=== PATIENT | male | born 1975 | race Caucasian/White ===

== ENCOUNTER 2019-01-05 14:17 | Emergency (ER) | payer MEDICARE ==
[~2019-01-05] VITALS: Ht 167.6 cm; Wt 105.2 kg
[~2019-01-05 14:17] MED LIST: ACHD5005 PO; DOXY100T2 PO; PRM25T PO; SEVE800T7
[2019-01-05 14:38] LABS: BASOPHILS % (AUTO) 1 % (0-10); EOSINOPHILS # (AUTO) 0.2 10^3/uL (0.0-0.3); EOSINOPHILS % (AUTO) 2 % (0-10); HEMATOCRIT 37 % (40-54); HEMOGLOBIN 11.6 G/DL (13.3-17.7); LYMPHOCYTES # (AUTO) 1.8 X 10^3 (1.0-4.0); LYMPHOCYTES % (AUTO) 25 % (12-44); MEAN CORPUSCULAR HEMOGLOBIN 30 PG (25-34); MEAN CORPUSCULAR HGB CONC 32 G/DL (32-36); MEAN CORPUSCULAR VOLUME 94 FL (80-99); MEAN PLATELET VOLUME 11.3 FL (7.4-10.4); MONOCYTES # (AUTO) 0.8 X 10^3 (0.0-1.0); MONOCYTES % (AUTO) 11 % (0-12); NEUTROPHILS # (AUTO) 4.4 X 10^3 (1.8-7.8); NEUTROPHILS % (AUTO) 62 % (42-75); PLATELET COUNT 178 10^3/uL (130-400); RED CELL DISTRIBUTION WIDTH 18.7 % (10.0-14.5); WHITE BLOOD COUNT 7.1 10^3/uL (4.3-11.0)
[2019-01-05] MEDS ORDERED: LANT10005 (14:43)
[2019-01-05 14:55] LABS: ALBUMIN 4.1 GM/DL (3.2-4.5); BILIRUBIN,TOTAL 0.7 MG/DL (0.1-1.0); CREATININE SERUM 7.25 MG/DL (0.60-1.30); POTASSIUM 3.7 MMOL/L (3.6-5.0); TOTAL PROTEIN 8.4 GM/DL (6.4-8.2)
--- NOTE | 2019-01-05 15:37 | ED Syncope ---
General Chief Complaint: Dizziness/Syncope Stated Complaint: DIZZINESS Nursing Triage Note: pt presents to ed by private auto from [facility] dialysis [facility]. pt states around 1300 durring his treatment he became dizzy. staff reprots pt passed out and came to shortly after. pt recieved a 200 ml bolus of fluids. staff reports pt bp 86/44 at that time and gave pt a second 200 ml bolus of fluids. Staff reprots pt became dizzy and lightheaded again and had loc breifly. Staff then gave pt a 600 ml bolus of fluids. Pt reports he had 3 episodes of vomiting last night but felt ok before dialysis. Source of Information: Patient Exam Limitations: No Limitations History of Present Illness Date Seen by Provider: Jan 05, 2019 Time Seen by Provider: 14:20 Initial Comments 43 year old male who was sent to the emergency room by staff at [facility] for reports of syncope after his treatment. The patient received a total of 1000ml bolus for blood pressure of 86/44. His blood pressure improved and he was sent to the emergency room for further evaluation. The patient arrived POV and is alert, oriented, and no longer dizzy. He is drinking soda and eating chips during exam. Symptoms Prior to Episode: None Loss of Consciousness: Unsure Current Symptoms: Back to Normal Allergies and Home Medications Allergies Coded Allergies: No Known Drug Allergies (Unverified , 07/28/14) Patient Home Medication List Home Medication List Reviewed: Yes Review of Systems Constitutional: no symptoms reported, see HPI Cardiovascular: see HPI, syncope All Other Systems Reviewed Negative Unless Noted: Yes Past Pkasbwv-Naengg-Denjoq Hx Past Med/Social Hx: Reviewed Nursing Past Med/Soc Hx Patient Social History Alcohol Use: Denies Use Recreational Drug Use: No Smoking Status: Never a Smoker Recent Foreign Travel: No Contact w/Someone Who Travel: No Recent Infectious Disease Expo: No Physical Abuse: No Sexual Abuse: No Mistreated: No Fear: No Immunizations Up To Date Tetanus Booster (TDap): Unknown Past Medical History Surgeries: Yes (PLASTIC SURG ON ARMS AND LEG. Fistula left upper extremity) Renal Respiratory: No Cardiac: No Neurological: No Reproductive Disorders: No Kidney Stones, Renal Failure, Dialysis Gastrointestinal: No Musculoskeletal: No Endocrine: No Cancer: No Psychosocial: No Integumentary: Yes (PT STATES OCCASIONAL RASHES, history of MRSA) Blood Disorders: No Family Medical History Reviewed Nursing Family Hx Physical Exam Vital Signs Vital Signs - First Documented 01/05/19 14:33 Temp 98.4 Pulse 114 Resp 20 B/P (MAP) 119/77 (91) Pulse Ox 99 Capillary Refill : Less Than 3 Seconds Height, Weight, BMI Height: 5'6.00" Weight: 232lbs. oz. 105.598763va; BMI Method:Stated General Appearance: No Apparent Distress, WD/WN Cardiovascular: Regular Rate, Rhythm, No Edema, No Gallop, No JVD, No Murmur, Normal Peripheral Pulses Respiratory: Chest Non Tender, Lungs Clear, Normal Breath Sounds, No Accessory Muscle Use, No Respiratory Distress Gastrointestinal: Normal Bowel Sounds, No Organomegaly, No Pulsatile Mass, Non Tender, Soft Extremities: Normal Capillary Refill, Normal Range of Motion, No Pedal Edema Neurologic/Psychiatric: Alert, Oriented x3, Normal Mood/Affect Cranial Nerves: Normal Hearing, Normal Speech, PERRL Coordination/Gait: Normal Finger to Nose, Normal Gait Skin: Normal Color, Warm/Dry, Cool Progress/Results/Core Measures Results/Orders Lab Results Laboratory Tests Test 01/05/19 14:32 Range/Units White Blood Count 7.1 4.3-11.0 10^3/uL Red Blood Count 3.91 L 4.35-5.85 10^6/uL Hemoglobin 11.6 L 13.3-17.7 G/DL Hematocrit 37 L 40-54 % Mean Corpuscular Volume 94 80-99 FL Mean Corpuscular Hemoglobin 30 25-34 PG Mean Corpuscular Hemoglobin Concent 32 32-36 G/DL Red Cell Distribution Width 18.7 H 10.0-14.5 % Platelet Count 178 130-400 10^3/uL Mean Platelet Volume 11.3 H 7.4-10.4 FL Neutrophils (%) (Auto) 62 42-75 % Lymphocytes (%) (Auto) 25 12-44 % Monocytes (%) (Auto) 11 0-12 % Eosinophils (%) (Auto) 2 0-10 % Basophils (%) (Auto) 1 0-10 % Neutrophils # (Auto) 4.4 1.8-7.8 X 10^3 Lymphocytes # (Auto) 1.8 1.0-4.0 X 10^3 Monocytes # (Auto) 0.8 0.0-1.0 X 10^3 Eosinophils # (Auto) 0.2 0.0-0.3 10^3/uL Basophils # (Auto) 0.0 0.0-0.1 10^3/uL Sodium Level 138 135-145 MMOL/L Potassium Level 3.7 3.6-5.0 MMOL/L Chloride Level 92 L 98-107 MMOL/L Carbon Dioxide Level 31 21-32 MMOL/L Anion Gap 15 H 5-14 MMOL/L Blood Urea Nitrogen 34 H 7-18 MG/DL Creatinine 7.25 H 0.60-1.30 MG/DL Estimat Glomerular Filtration Rate 8 BUN/Creatinine Ratio 5 Glucose Level 102 70-105 MG/DL Calcium Level 10.0 8.5-10.1 MG/DL Corrected Calcium 9.9 8.5-10.1 MG/DL Total Bilirubin 0.7 0.1-1.0 MG/DL Aspartate Amino Transf (AST/SGOT) 26 5-34 U/L Alanine Aminotransferase (ALT/SGPT) 15 0-55 U/L Alkaline Phosphatase 75 40-136 U/L Total Protein 8.4 H 6.4-8.2 GM/DL Albumin 4.1 3.2-4.5 GM/DL My Orders Orders - GIANCARLO GUTIERREZ Comprehensive Metabolic Panel (01/05/19 14:25) Saline Lock/Iv-Start (01/05/19 14:25) Cbc With Automated Diff (01/05/19 14:25) Vital Signs/I&O 01/05/19 01/05/19 14:33 15:49 Temp 98.4 Pulse 114 100 Resp 20 20 B/P (MAP) 119/77 (91) 96/64 (75) Pulse Ox 99 98 Blood Pressure Mean: 91 Progress Progress Note : Time: 15:36 Progress Note I have reece and evaluated the patient. I have informed him of his laboratory studies. He has had normotensive blood pressures during his stay and has had no symptoms of syncope. He agrees with plan of care, plans for discharge, return precautions were given. Departure Impression Primary Impression: Chronic kidney disease (CKD) Additional Impression: Vertigo Disposition: 01 HOME, SELF-CARE Condition: Stable/Unchanged Departure-Patient Inst. Decision time for Depature: 15:36 Referrals: NO,LOCAL PHYSICIAN (PCP/Family) Primary Care Physician Patient Instructions: Vertigo (a Type of Dizziness) (DC) Add. Discharge Instructions: Continue your regular schedule with dialysis. Eat a well balanced diet with appropriate fluid intake. Return back to the emergency room for worsening symptoms or concerns as needed. All discharge instructions reviewed with patient and/or family. Voiced understanding. GIANCARLO GUTIERREZ Jan 05, 2019 15:37
[2019-01-05 15:49] VITALS: BP 96/64
== END 2019-01-05 15:49 | disposition home or self-care (01) ==
LOC: EDUNIT# 14:17 → ER 14:18
DX: N18.6 End stage renal disease (principal); R42 Dizziness and giddiness; Z99.2 Dependence on renal dialysis; Z87.442 Personal history of urinary calculi; Z98.890 Other specified postprocedural states; Z86.14 Personal history of Methicillin resistant Staphylococcus aureus infection
CPT/HCPCS: 36415; 80053; 85025

== ENCOUNTER 2022-05-14 12:05 | Emergency (ER) | payer MEDICARE ==
[~2022-05-14] VITALS: Ht 167.7 cm; Wt 106.0 kg
[~2022-05-14 12:05] MED LIST changes: +LANT10005
[2022-05-14] MEDS ORDERED: fentaNYL INJ 100 MCG/2 ML AMP IM ONE (12:45)
--- NOTE | 2022-05-14 13:10 | Diagnostic Imaging Report ---
INDICATION: Right knee pain. TIME OF EXAM: 12:48 p.m. TECHNIQUE: Three views of the right knee were obtained. FINDINGS: Alignment is normal. Joint spaces are well maintained. Articular surfaces are smooth. No acute fracture, dislocation or effusion is seen. Small calcific densities in the suprapatellar location are noted, consistent with enthesophytes. IMPRESSION: No acute bony abnormalities detected. Dictated by: Dictated on workstation # [id number]
--- NOTE | 2022-05-14 13:22 | Diagnostic Imaging Report ---
INDICATION: Foot pain. TECHNIQUE: Three views of the right foot. CORRELATION STUDY: None. FINDINGS: No acute bony abnormality. No migdalia bony erosive or destructive change. There is mild degenerative change of the first MTP joint, which includes mild marginal osteophyte formation. Calcification projects superior to the distal first metatarsal likely of no acute significance. Remaining joint spaces are otherwise maintained and unremarkable. Small plantar calcaneal spur. Mild soft tissue edema in the distal foot. IMPRESSION: 1. Negative for acute findings of the foot. Mild degenerative changes particularly at the region of the first MTP joint. Small plantar calcaneal spur. Dictated by: Dictated on workstation # [id number]
--- NOTE | 2022-05-14 14:16 | Diagnostic Imaging Report ---
INDICATION: Left ankle pain AP, oblique and lateral views of the left ankle are obtained. There is cortical irregularity adjacent to the talonavicular joint which may be due to avulsion injury. Minimal irregularity is also seen adjacent to the lateral malleoli without significant associated swelling. IMPRESSION: There are minimal areas of cortical irregularity involving both malleoli as well as the dorsum of the distal talus and proximal navicular bone. Each of these sites may represent avulsion injuries of indeterminate age and correlation to site of pain would be useful. Dictated by: Dictated on workstation # [id number]
--- NOTE | 2022-05-14 15:06 | ED Fall/Injury ---
General Chief Complaint: Lower Extremity Stated Complaint: TWISTED R KNEE Nursing Triage Note: arrives via ems to room 8 with c/o right knee injury. walking off porch and dog walked in front of him causing him fo miss the last step falling and injuring his right knee. verbalizes he did not hit the ground. Source: patient Exam Limitations: no limitations History of Present Illness Date Seen by Provider: May 14, 2022 Time Seen by Provider: 12:20 Initial Comments This 46-year-old gentleman was leaving to attend his dialysis session when he missed the last step walking off his porch causing him to twist his right knee and fall. He presents with swelling to the anterior medial left knee and significant pain with difficulty bearing weight. He also complains of pain at the medial right foot. Later he complains of pain at the left ankle. Denies any head or neck injury. No open wounds. He has significant joint disease and received an injection in his right knee yesterday with his orthopedic provider in [place]. Allergies and Home Medications Allergies Coded Allergies: No Known Drug Allergies (Unverified , 07/28/14) Patient Home Medication List Home Medication List Reviewed: Yes Hydrocodone/Acetaminophen (Hydrocodone-Acetamin 5-325 mg) 5 Mg-325 Mg Tablet, 1- 2 TAB PO Q4H PRN for PAIN-MODERATE (5-7) Prescribed by: JARET STEWARD on 05/14/22 1609 Lanthanum Carbonate (Lanthanum Carbonate) 1,000 Mg Tab.chew, (Reported) Entered as Reported by: ZAYRA DODSON on 01/05/19 1443 Review of Systems Review of Systems Constitutional: no symptoms reported Eyes: No Symptoms Reported Ears, Nose, Mouth, Throat: no symptoms reported Respiratory: no symptoms reported Cardiovascular: no symptoms reported Gastrointestinal: no symptoms reported Genitourinary: no symptoms reported Musculoskeletal: see HPI Skin: no symptoms reported Psychiatric/Neurological: No Symptoms Reported Past Qrljqmv-Qsdkxj-Hrklnh Hx Patient Social History Tobacco Use?: No Tobacco type used: Cigarettes Smoking Status: Former Smoker Smokeless Tobacco Frequency: Former User Substance use?: No Alcohol Frequency: Once in a while Pt feels they are or have been: No Immunizations Up To Date Tetanus Booster (TDap): Unknown Influenza Vaccine Up-to-Date: Yes; Up-to-Date Past Medical History Surgery/Hospitalization HX: PMH RENAL FAILURE SURGERIES 2019 FISTULA REVISED Surgeries: Yes (PLASTIC SURG ON ARMS AND LEG. Fistula left upper extremity) Renal Respiratory: No Cardiac: No Neurological: No Reproductive Disorders: No Genitourinary: Yes Kidney Stones, Renal Failure, Dialysis Gastrointestinal: No Musculoskeletal: No Endocrine: No Cancer: No Psychosocial: No Integumentary: Yes (PT STATES OCCASIONAL RASHES, history of MRSA) Blood Disorders: No Physical Exam Vital Signs Vital Signs - First Documented 05/14/22 05/14/22 12:12 16:13 Temp 37.2 Pulse 99 Resp 18 B/P (MAP) 100/68 (79) Pulse Ox 97 O2 Delivery Room Air Capillary Refill : Less Than 3 Seconds Height, Weight, BMI Height: 5'6.00" Weight: 232lbs. oz. 105.542624ob; 37.00 BMI Method:Stated General Appearance: WD/WN, mild distress HEENT: normal ENT inspection Cardiovascular: regular rate, rhythm, no edema, no murmur Respiratory: lungs clear, normal breath sounds, no respiratory distress Gastrointestinal: normal bowel sounds, non tender, soft Extremities: other (Pain, swelling, tenderness, and ecchymosis to the left anterior medial knee. Pain with range of motion. ) Skin: warm/dry, ecchymosis (Right knee), other (Extensive scarring to the lower extremities from old wound infection.) Janice Coma Score Best Eye Response: (4) Open Spontaneously Best Verbal Response: (5) Oriented Best Motor Response: (6) Obeys Commands [place] Total: 15 Progress/Results/Core Measures Results/Orders My Orders Orders - JARET CRAFT MD Knee, Right, 3 Views (05/14/22 12:31) Foot, Right, 3 View (05/14/22 12:31) Fentanyl Inj (Sublimaze Injection) (05/14/22 12:45) Ankle, Left, 3 Views (05/14/22 13:57) Hydrocodone/Apap 5/325 Tablet (Lortab 5 (05/14/22 15:15) Knee Immobilizer (05/14/22 15:02) Steplite (05/14/22 15:02) Walker (05/14/22 15:03) Medications Given in ED Current Medications Medications Dose Ordered Sig/Mykel Route Start Time Stop Time Status Last Admin Dose Admin Acetaminophen/ Hydrocodone Bitart 1 ea ONCE ONCE PO 05/14/22 15:15 05/14/22 15:16 DC 05/14/22 15:29 1 EA Fentanyl Citrate 75 mcg ONCE ONCE IM 05/14/22 12:45 05/14/22 12:46 DC 05/14/22 12:38 75 MCG Vital Signs/I&O 05/14/22 05/14/22 12:12 16:13 Temp 37.2 36.4 Pulse 99 83 Resp 18 18 B/P (MAP) 100/68 (79) 114/68 Pulse Ox 97 O2 Delivery Room Air Room Air Blood Pressure Mean: 79 Progress Progress Note : Progress Note X-rays were obtained. There is no evidence of bony injury on the right knee. There is also no evidence of bony injury on the right foot. Patient later complained of left ankle pain. X-ray was obtained. There were questionable avulsion fractures on the bilateral malleoli as well as on the dorsum of the foot at the navicular and talus bones. Tenderness did not correlate with the malleoli are avulsions but there was tenderness on the proximal dorsum of the foot. Patient was placed in a boot on the left and a knee immobilizer on the ri ght. He was provided a walker and demonstrated ability to walk independently. He was advised to follow-up with his orthopedic provider in [place] on Tuesday. Pain medication was provided. See discharge instructions for further discussion. Diagnostic Imaging Diagonstic Imaging: Xray Plain Films/CT/US/NM/MRI: knee, ankle, other (Right foot) Comments All x-rays viewed by me and reports reviewed. See reports below: NAME: CÉSAR WHITAKER [facility] REC#: [id number] PT STATUS: REG ER : 1975 PHYSICIAN: JARET CRAFT MD ADMIT DATE: 05/14/22/ER Signed Date of Exam:05/14/22 FOOT, RIGHT, 3 VIEW INDICATION: Foot pain. TECHNIQUE: Three views of the right foot. CORRELATION STUDY: None. FINDINGS: No acute bony abnormality. No migdalia bony erosive or destructive change. There is mild degenerative change of the first MTP joint, which includes mild marginal osteophyte formation. Calcification projects superior to the distal first metatarsal likely of no acute significance. Remaining joint spaces are otherwise maintained and unremarkable. Small plantar calcaneal spur. Mild soft tissue edema in the distal foot. IMPRESSION: 1. Negative for acute findings of the foot. Mild degenerative changes particularly at the region of the first MTP joint. Small plantar calcaneal spur. Dictated by: Dictated on workstation # [id number] Dict: 05/14/22 1309 Trans: 05/14/22 1512 [id number] Interpreted by: SARAH BAILEY DO Electronically signed by: SARAH BAILEY DO 05/14/22 1512 NAME: CÉSAR WHITAKER [facility] REC#: [id number] PT STATUS: REG ER : 1975 PHYSICIAN: JARET CRAFT MD ADMIT DATE: 05/14/22/ER Signed Date of Exam:05/14/22 KNEE, RIGHT, 3 VIEWS INDICATION: Right knee pain. TIME OF EXAM: 12:48 p.m. TECHNIQUE: Three views of the right knee were obtained. FINDINGS: Alignment is normal. Joint spaces are well maintained. Articular surfaces are smooth. No acute fracture, dislocation or effusion is seen. Small calcific densities in the suprapatellar location are noted, consistent with enthesophytes. IMPRESSION: No acute bony abnormalities detected. Dictated by: Dictated on workstation # [id number] Dict: 05/14/22 1307 Trans: 05/14/22 1540 [id number] Interpreted by: MARGIE SALGADO MD Electronically signed by: MARGIE SALGADO MD 05/14/22 1540 NAME: WHITAKERCÉSAR Dolly [facility] REC#: [id number] PT STATUS: REG ER : 1975 PHYSICIAN: JARET CRAFT MD ADMIT DATE: 05/14/22/ER Signed Date of Exam:05/14/22 ANKLE, LEFT, 3 VIEWS INDICATION: Left ankle pain AP, oblique and lateral views of the left ankle are obtained. There is cortical irregularity adjacent to the talonavicular joint which may be due to avulsion injury. Minimal irregularity is also seen adjacent to the lateral malleoli without significant associated swelling. IMPRESSION: There are minimal areas of cortical irregularity involving both malleoli as well as the dorsum of the distal talus and proximal navicular bone. Each of these sites may represent avulsion injuries of indeterminate age and correlation to site of pain would be useful. Dictated by: Dictated on workstation # [id number] Dict: 05/14/221411 Trans: 05/14/22 141 [facility] [id number] Interpreted by: OLIVA AMBROSE MD Electronically signed by: OLIVA AMBROSE MD 05/14/22 141 Departure Impression Primary Impression: Fall on stairs Qualified Codes: W10.9XXA - Fall (on) (from) unspecified stairs and steps, initial encounter Additional Impressions: Right knee injury Qualified Codes: S89.91XA - Unspecified injury of right lower leg, initial encounter Avulsion fracture of navicular bone of left foot Qualified Codes: S92.252A - Displaced fracture of navicular [scaphoid] of left foot, initial encounter for closed fracture Avulsion fracture of left talus Qualified Codes: S92.155A - Nondisplaced avulsion fracture (chip fracture) of left talus, initial encounter for closed fracture End stage renal failure on dialysis Disposition: HOME, SELF-CARE Condition: Improved Departure-Patient Inst. Decision time for Depature: 16:05 Referrals: NO,LOCAL PHYSICIAN (PCP/Family) Primary Care Physician Patient Instructions: Foot Fracture (DC) Add. Discharge Instructions: Use the boot and knee immobilizer when ambulating. Ambulate with the walker only. Do not attempt to walk without a walker. Compressive wrapping with Eric bandage, elevation, and 20-minute intervals of icing should help reduce pain and swelling. Use hydrocodone as prescribed for pain control. You may wish to take a stool softener such as Colace while on the hydrocodone to prevent constipation. Contact the dialysis center to formulate a plan for making up your dialysis, possibly even for tomorrow. Contact your orthopedic provider first thing on Tuesday morning for follow-up appointment. Return to care if you have worsening symptoms. Call with questions or concerns. All discharge instructions reviewed with patient and/or family. Voiced understanding. Scripts Hydrocodone/Acetaminophen (Hydrocodone-Acetamin 5-325 mg) 5 Mg-325 Mg Tablet 1-2 TAB PO Q4H PRN for PAIN-MODERATE (5-7), #30 TAB For left foot fracture and right knee injury. Prov: JARET CRAFT MD 05/14/22 JARET CRAFT MD May 14, 2022 15:06
[2022-05-14] MEDS ORDERED: HYDROcodone/APAP 5 MG/325 MG (LORTAB) TAB PO ONE (15:15)
[2022-05-14] MEDS ORDERED: ACHD5005 PO (16:08)
[2022-05-14 16:13] VITALS: BP 114/68
== END 2022-05-14 16:13 | disposition home or self-care (01) ==
LOC: EDUNIT# 12:05 → ER 12:10
DX: S92.252A Displaced fracture of navicular [scaphoid] of left foot, initial encounter for closed fracture (principal); S92.155A Nondisplaced avulsion fracture (chip fracture) of left talus, initial encounter for closed fracture; S80.01XA Contusion of right knee, initial encounter; N18.6 End stage renal disease; Z87.891 Personal history of nicotine dependence; Z99.2 Dependence on renal dialysis; Z28.310 Unvaccinated for COVID-19; X50.1XXA Overexertion from prolonged static or awkward postures, initial encounter; W10.8XXA Fall (on) (from) other stairs and steps, initial encounter
CPT/HCPCS: 73562; 73610; 73630; 99283; L1830

== ENCOUNTER 2023-01-24 11:38 | Emergency (ER) | payer MEDICARE, MEDICAID ==
[~2023-01-24] VITALS: Ht 167 cm; Wt 104.0 kg
--- NOTE | 2023-01-24 11:59 | ED Back Pain ---
General Chief Complaint: Back Problems Stated Complaint: LOWER BACK PAIN | KIDNEY PAIN Source of Information: Patient Exam Limitations: No Limitations History of Present Illness Date Seen by Provider: Jan 24, 2023 Time Seen by Provider: 11:57 Initial Comments Patient is a 47-year-old male with a history of chronic kidney disease requiring dialysis 3 times a week at [facility] who presents to ED with bilateral flank pain. Described as sharp started yesterday afternoon while sitting watching TV. This pain has increased radiating across bilateral backs. He states he is producing urine without any pain or hematuria. Denies abdominal pain, vomiting, diarrhea, fever, chills. Reports similar pain in the past had kidney stone versus urinary tract infection. Patient did not go to dialysis this morning. Denies of any known injury such as lifting anything prior. Patient took Tylenol at home without much improvement. Allergies and Home Medications Allergies Coded Allergies: No Known Drug Allergies (Unverified , 07/28/14) Patient Home Medication List Home Medication List Reviewed: Yes Hydrocodone/Acetaminophen (Hydrocodone-Acetamin 5-325 mg) 5 Mg-325 Mg Tablet, 1- 2 TAB PO Q4H PRN for PAIN-MODERATE (5-7) Prescribed by: JARET STEWARD on 05/14/22 1609 Lanthanum Carbonate (Lanthanum Carbonate) 1,000 Mg Tab.chew, (Reported) Entered as Reported by: ZAYRA DODSON on 01/05/19 1443 Review of Systems Constitutional: No chills, No diaphoresis, No malaise, No weakness EENTM: No blurred vision, No double vision Respiratory: No cough, No dyspnea on exertion Cardiovascular: No chest pain, No edema Gastrointestinal: No abdominal pain, No diarrhea, No nausea, No vomiting Genitourinary: No decreased output, No discharge, No frequency, No hematuria Musculoskeletal: back pain; No joint pain Skin: No change in color, No change in hair/nails All Other Systems Reviewed Negative Unless Noted: Yes Past Oqfasni-Ktykhd-Dmbnud Hx Patient Social History Tobacco Use?: Yes Tobacco type used: Cigarettes Smoking Status: Current Everyday Smoker Substance use?: No Alcohol Use?: No Pt feels they are or have been: No Immunizations Up To Date Tetanus Booster (TDap): Unknown First/Initial COVID19 Vaccinat: DENIES Past Medical History Surgery/Hospitalization HX: PMH RENAL FAILURE SURGERIES 2019 FISTULA REVISED Surgeries: Yes (PLASTIC SURG ON ARMS AND LEG. Fistula left upper extremity) Renal Respiratory: No Cardiac: No Neurological: No Reproductive Disorders: No Genitourinary: Yes Kidney Stones, Renal Failure, Dialysis Gastrointestinal: No Musculoskeletal: No Endocrine: No Cancer: No Psychosocial: No Integumentary: Yes (PT STATES OCCASIONAL RASHES, history of MRSA) Blood Disorders: No Physical Exam Vital Signs Vital Signs - First Documented 01/24/23 11:44 Temp 36.0 Pulse 89 Resp 18 B/P (MAP) 99/69 (79) Pulse Ox 100 O2 Delivery Room Air Capillary Refill : Height, Weight, BMI Height: 5'6.00" Weight: 232lbs. oz. 105.799458qt; 37.00 BMI Method:Stated General Appearance: No Apparent Distress, WD/WN HEENT: PERRL/EOMI, TMs Normal, Normal ENT Inspection, Pharynx Normal Neck: Full Range of Motion, Normal Inspection, Non Tender, Supple Cardiovascular: Regular Rate, Rhythm, No Edema, No Gallop, No JVD, No Murmur Respiratory: Chest Non Tender, Lungs Clear, Normal Breath Sounds, No Accessory Muscle Use, No Respiratory Distress Gastrointestinal: Normal Bowel Sounds, No Organomegaly, No Pulsatile Mass, Non Tender, Soft Back: CVA Tenderness (L), CVA Tenderness (R) Extremity: Normal Capillary Refill, Normal Inspection, Normal Range of Motion, Non Tender Neurologic/Psychiatric: Alert, Oriented x3, No Motor/Sensory Deficits, Normal Mood/Affect Skin: Normal Color, Warm/Dry Progress/Results/Core Measures Results/Orders Lab Results Laboratory Tests Test 01/24/23 11:52 01/24/23 12:31 Range/Units White Blood Count 2.1 L 4.3-11.0 10^3/uL Red Blood Count 2.81 L 4.30-5.52 10^6/uL Hemoglobin 9.1 L 13.3-17.7 g/dL Hematocrit 28 L 40-54 % Mean Corpuscular Volume 100 H 80-99 fL Mean Corpuscular Hemoglobin 32 25-34 pg Mean Corpuscular Hemoglobin Concent 32 32-36 g/dL Red Cell Distribution Width 15.2 H 10.0-14.5 % Platelet Count 93 L 130-400 10^3/uL Mean Platelet Volume 11.7 9.0-12.2 fL Immature Granulocyte % (Auto) 1 % Neutrophils (%) (Auto) 43 42-75 % Lymphocytes (%) (Auto) 39 12-44 % Monocytes (%) (Auto) 14 H 0-12 % Eosinophils (%) (Auto) 2 0-10 % Basophils (%) (Auto) 1 0-10 % Neutrophils # (Auto) 0.9 L 1.8-7.8 10^3/uL Lymphocytes # (Auto) 0.8 L 1.0-4.0 10^3/uL Monocytes # (Auto) 0.3 0.0-1.0 10^3/uL Eosinophils # (Auto) 0.0 0.0-0.3 10^3/uL Basophils # (Auto) 0.0 0.0-0.1 10^3/uL Immature Granulocyte # (Auto) 0.0 0.0-0.1 10^3/uL Percent Immature Platelet Fraction 5.1 0.0-7.6 % Sodium Level 140 135-145 MMOL/L Potassium Level 3.3 L 3.6-5.0 MMOL/L Chloride Level 98 98-107 MMOL/L Carbon Dioxide Level 24 21-32 MMOL/L Anion Gap 18 H 5-14 MMOL/L Blood Urea Nitrogen 46 H 7-18 MG/DL Creatinine 11.05 H 0.60-1.30 MG/DL Estimat Glomerular Filtration Rate 5 BUN/Creatinine Ratio 4 Glucose Level 84 70-105 MG/DL Calcium Level 8.3 L 8.5-10.1 MG/DL Corrected Calcium 8.6 8.5-10.1 MG/DL Magnesium Level 2.1 1.6-2.4 MG/DL Total Bilirubin 0.5 0.1-1.0 MG/DL Aspartate Amino Transf (AST/SGOT) 38 H 5-34 U/L Alanine Aminotransferase (ALT/SGPT) 18 0-55 U/L Alkaline Phosphatase 177 H 40-136 U/L Total Protein 7.8 6.4-8.2 GM/DL Albumin 3.6 3.2-4.5 GM/DL Lipase 237 H 8-78 U/L Urine Color YELLOW Urine Clarity CLEAR Urine pH 8.5 5-9 Urine Specific [place] 1.010 L 1.016-1.022 Urine Protein 2+ H NEGATIVE Urine Glucose (UA) NEGATIVE NEGATIVE Urine Ketones NEGATIVE NEGATIVE Urine Nitrite NEGATIVE NEGATIVE Urine Bilirubin NEGATIVE NEGATIVE Urine Urobilinogen 0.2 < = 1.0 MG/DL Urine Leukocyte Esterase NEGATIVE NEGATIVE Urine RBC (Auto) 1+ H NEGATIVE Urine RBC RARE /HPF Urine WBC RARE /HPF Urine Squamous Epithelial Cells 0-2 /HPF Urine Crystals PRESENT H /LPF Urine Amorphous Sediment FEW KATRIN PHOSPHATE H /LPF Urine Bacteria TRACE /HPF Urine Casts NONE /LPF Urine Mucus NEGATIVE /LPF Urine Culture Indicated NO My Orders Orders - MARGAUX KLINE PA Ua Culture If Indicated (01/24/23 11:50) Cbc With Automated Diff (01/24/23 11:56) Comprehensive Metabolic Panel (01/24/23 11:56) Lipase (01/24/23 11:56) Magnesium (01/24/23 11:56) Ct Abd/Pelvis Wo(Kidney Stone) (01/24/23 11:56) Morphine Injection (Morphine Injection (01/24/23 12:30) Ns Iv 500 Ml (Sodium Chloride 0.9%) (01/24/23 12:52) Potassium Chloride (Tablet) (K Dur Table (01/24/23 14:15) Medications Given in ED Current Medications Medications Dose Ordered Sig/Mykel Route Start Time Stop Time Status Last Admin Dose Admin Potassium Chloride 20 meq ONCE ONCE PO 01/24/23 14:15 01/24/23 14:16 DC 01/24/23 14:14 20 MEQ Vital Signs/I&O 01/24/23 01/24/23 01/24/23 01/24/23 11:44 12:25 13:06 14:15 Temp 36.0 Pulse 89 85 83 Resp 18 18 18 B/P (MAP) 99/69 (79) 107/64 (78) 97/67 (77) 105/68 Pulse Ox 100 97 99 O2 Delivery Room Air Room Air Room Air Departure Communication (PCP) Reviewed previous H&P's, testing, lab work, imaging. History of urinary tract infection and kidney stones. Patient with acute onset of lower back pain. De nies of any specific injury. He did have bilateral lumbar and lower thoracic paraspinal muscle tenderness no bowel or urine incontinence, saddle paresthesia. Patient does produce urine. Dialysis 3 times a week. Did not go to dialysis this morning and came immediately to the ER. Due to location of pain worry about worsening kidney function, urinary tract infection, nephrolithiasis, low back muscle strain. Patient refused anything for pain medication. CBC, CMP and urinalysis with CT abdomen and pelvis without contrast was ordered. Urinalysis was negative for infection but did note protein and hematuria. CBC showed leukopenia at 2.1, hemoglobin 9.1, platelet at 93. Potassium 3.3, GFR 3, creatinine 11. Last creatinine was 7.25 in 2019. In 2016 read as high as 12. This could be associated to missed dialysis versus worsening kidney function. No appreciation of lower leg swelling. He was slightly hypotensive and was given 500 mil of normal saline. CT abdomen pelvis was negative for nephrolithiasis, pyelonephritis, acute findings. Chronic findings noted with perinephric scarring, kidney atrophy. Chronic pelvic inflammatory edema changes. Patient refused anything for pain. He states he took Tylenol right before arrival that was improving his pain. Attempted to contact Dr. Andrade shipping support in [place]. Did not receive a call back. Attempted to call twice without any callback. Patient did not want to wait any longer. He states he has appointment at 8 AM for his dialysis. Patient states his pain is improving and would like to be discharged at this time. Recommend the importance of following up with his dialysis appointment. His potassium was 3.3. Provided a dose of potassium oral here at bedside. Surprisingly his electrolytes were fairly within normal range. He did have a lipase of 237 but did not have any upper abdominal pain. Recommend clear liquid diet for the next 2 days and to increase accordingly. Recommend recheck of his lab work tomorrow or the next day for a follow-up. He agrees. Return precaution were discussed with patient. Pain could be more musculoskeletal. Recommend further evaluation Impression Primary Impression: Chronic kidney disease (CKD) Additional Impression: Back pain Disposition: HOME, SELF-CARE Condition: Stable Departure-Patient Inst. Decision time for Depature: 14:08 Referrals: NADINE SALMON DO (PCP/Family) Primary Care Physician Patient Instructions: Dialysis and Diet Add. Discharge Instructions: Continue monitoring symptoms at home. Tylenol at home for pain. If any worsening back pain, fever, decreased urine output to return back to ED. Recommend getting dialysis tomorrow All discharge instructions reviewed with patient and/or family. Voiced understanding. MARGAUX KLINE Jan 24, 2023 11:59
[2023-01-24 12:03] LABS: BASOPHILS % (AUTO) 1 % (0-10); EOSINOPHILS % (AUTO) 2 % (0-10); HEMATOCRIT 28 % (40-54); HEMOGLOBIN 9.1 g/dL (13.3-17.7); LYMPHOCYTES # (AUTO) 0.8 10^3/uL (1.0-4.0); LYMPHOCYTES % (AUTO) 39 % (12-44); MEAN CORPUSCULAR HEMOGLOBIN 32 pg (25-34); MEAN CORPUSCULAR HGB CONC 32 g/dL (32-36); MEAN CORPUSCULAR VOLUME 100 fL (80-99); MEAN PLATELET VOLUME 11.7 fL (9.0-12.2); MONOCYTES # (AUTO) 0.3 10^3/uL (0.0-1.0); MONOCYTES % (AUTO) 14 % (0-12); NEUTROPHILS # (AUTO) 0.9 10^3/uL (1.8-7.8); NEUTROPHILS % (AUTO) 43 % (42-75); PLATELET COUNT 93 10^3/uL (130-400); WHITE BLOOD COUNT 2.1 10^3/uL (4.3-11.0)
[2023-01-24 12:14] LABS: ALBUMIN 3.6 GM/DL (3.2-4.5); POTASSIUM 3.3 MMOL/L (3.6-5.0)
[2023-01-24 12:15] LABS: CALCIUM 8.3 MG/DL (8.5-10.1)
[2023-01-24 12:17] LABS: TOTAL PROTEIN 7.8 GM/DL (6.4-8.2)
[2023-01-24 12:18] LABS: BILIRUBIN,TOTAL 0.5 MG/DL (0.1-1.0)
[2023-01-24 12:20] LABS: CREATININE SERUM 11.05 MG/DL (0.60-1.30)
[2023-01-24 12:23] LABS: MAGNESIUM 2.1 MG/DL (1.6-2.4)
[2023-01-24] MEDS ORDERED: morphine INJ 10 MG/ML 1ML (SYR OR VIAL) IVP ONE (12:30)
--- NOTE | 2023-01-24 12:34 | Diagnostic Imaging Report ---
PROCEDURE: CT urinary tract, rule out kidney stone. TECHNIQUE: Multiple contiguous axial images were obtained through the abdomen and pelvis without the use of intravenous contrast. Auto Exposure Controls were utilized during the CT exam to meet ALARA standards for radiation dose reduction. INDICATION: Bilateral flank pain. COMPARISON: 04/26/2016. FINDINGS: Unenhanced images of the liver, gallbladder, pancreas, adrenal glands, and spleen are stable without evidence of acute abnormality or adverse change. There is diffuse renal cortical atrophy with occasional cortical cysts and dystrophic calcifications. No hydronephrosis or hydroureter is seen. There is mural thickening of the right colon with low density indicating probable chronic inflammation. No acute inflammation or obstruction is identified. There is also stranding surrounding the internal iliac vessels bilaterally with mural thickening of the decompressed urinary bladder. There has been an increase in the lytic appearance of the superior endplate at L5 which may be related to chronic renal deficiency and dialysis. No new fluid collection is identified. IMPRESSION: Generally stable appearance of the abdomen and pelvis with renal atrophy and surrounding perinephric scarring. There is also edema and/or inflammation in the pelvis which is chronic. No acute component is detected. There is decompression of the thick-walled urinary bladder. Clinical correlation would be useful. Increasing lucency in the superior endplate at L5 may be on the basis of renal insufficiency and chronic dialysis. Dictated by: Dictated on workstation # [id number]
[2023-01-24 12:36] LABS: BILIRUBIN,URINE NEGATIVE (NEGATIVE); CLARITY,URINE CLEAR; COLOR,URINE YELLOW; GLUCOSE, URINE (UA) NEGATIVE (NEGATIVE); KETONES,URINE NEGATIVE (NEGATIVE); LEUKOCYTE ESTERASE ,URINE NEGATIVE (NEGATIVE); NITRITE,URINE NEGATIVE (NEGATIVE); PH,URINE 8.5 (5-9); PROTEIN,URINE 2+ (NEGATIVE)
[2023-01-24 12:48] LABS: RBC,URINE RARE /HPF
[2023-01-24 12:49] LABS: AMORPHOUS SEDIMENT,UR FEW AMOR PHOSPHATE /LPF; BACTERIA,URINE TRACE /HPF; SQUAMOUS EPITHELIAL CELL,UR 0-2 /HPF; WBC,URINE RARE /HPF
[2023-01-24] MEDS ORDERED: NS IV 500 ML 500 ML IV STA (12:52)
[2023-01-24 14:15] VITALS: BP 105/68
[2023-01-24] MEDS ORDERED: KCL 20 MEQ TAB (K-DUR) PO ONE (14:15)
== END 2023-01-24 14:15 | disposition home or self-care (01) ==
LOC: EDUNIT# 11:38 → ER 11:42
DX: M54.50 Low back pain, unspecified (principal); N18.6 End stage renal disease; Z99.2 Dependence on renal dialysis; F17.210 Nicotine dependence, cigarettes, uncomplicated; Z28.310 Unvaccinated for COVID-19
CPT/HCPCS: 36415; 74176; 80053; 81000; 83690; 83735; 85025